=== PATIENT | female | born 1935 | race Caucasian/White ===

== ENCOUNTER 2021-02-27 09:54 | Outpatient (RCR) | payer MEDICARE, SELFPAY | END 2021-08-09 14:59 | disposition home or self-care (01) | LOC: HO.PTWFD 09:54 | PROVIDERS: PCP Internal Medicine Endocrinology, Diabetes & Metabolism; Visit Provider Orthopaedic Surgery | DX: M16.11 Unilateral primary osteoarthritis, right hip (principal) | CPT/HCPCS: 97110; 97116; 97162; 97535 ==

== ENCOUNTER 2021-04-10 10:00 | Outpatient (RCR) | payer MEDICARE, SELFPAY | END 2021-04-23 09:00 | disposition home or self-care (01) | LOC: HO.PTWFD 10:00 | PROVIDERS: Visit Provider Orthopaedic Surgery | DX: Z96.642 Presence of left artificial hip joint (principal) | CPT/HCPCS: 97110; 97116; 97162; 97535 ==